=== PATIENT | male | born 1945 | race Caucasian/White ===

== ENCOUNTER → 2016-07-04 | Day surgery (SDC) | payer MEDICARE, BC ==
[~2016-07-04] MED LIST: COUM7.5T PO; NORC7.5T PO; PROPOFOL 200 MG/20 ML AMP IV ONE; SODIUM CHLORIDE 0.9% INJ 10 ML ONE; TRIAMCINOLONE ACETONIDE 40 MG/ML VIAL ONE
== END | disposition home or self-care (01) ==
LOC: ESDC 07:14
PROVIDERS: ATTEND Anesthesiology Pain Medicine
DX: M48.06 Spinal stenosis, lumbar region (principal)
CPT/HCPCS: 62323; J3301; 77003